=== PATIENT | male | born 1980 | race Caucasian/White ===

== ENCOUNTER 2017-07-02 18:15 | Emergency (ER) | payer OTHER, SELFPAY ==
[2017-07-02 18:16] VITALS: RESP 20; O2SAT 100; BMI 30.7
--- NOTE | 2017-07-02 18:45 | XR_ITS ---
XR chest CHP 2V COMPARISON: CT angiogram of the chest 11/02/2016 HISTORY: Right chest wall pain TECHNIQUE: PA and lateral chest FINDINGS: This is a somewhat poor inspiration however lung virk are clear of infiltrate. The cardiac silhouette and vascularity are normal. Again noted is a partially calcified granuloma right mid lung field which was well seen on the CT scan. There are small calcified hilar nodes bilaterally. The bony thorax appears grossly normal. IMPRESSION: Old granulomatous disease, no acute chest pathology noted
[2017-07-02 19:12] LABS: Basophils # 0.1 K/mm3 (0-0.2); Basophils % 0.5 % (0.1-2.0); Eosinophils # 0.4 K/mm3 (0.0-0.4); Eosinophils % 3.2 % (0.1-12.0); Hematocrit 48.4 % (42.0-52.0); Hemoglobin 16.1 g/dL (14.1-18.0); Lymphocytes % 25.9 K/mm3 (10-50); Mean Corpuscular HGB Conc 33.4 g/dL (31.8-35.4); Mean Corpuscular Volume 86.8 fl (80-94); Monocytes # 0.8 K/mm3 (0.1-1.0); Monocytes % 6.4 % (1.7-9.3); Neutrophils # 7.5 K/mm3 (1.8-7.8); Platelet Count 212 K/mm3 (142-424); Red Blood Count 5.57 M/mm3 (4.60-6.20); Red Cell Distribution Width 13.2 % (11.5-17.5); White Blood Count 11.7 K/mm3 (4.8-10.8)
--- NOTE | 2017-07-02 19:28 | [facility].EDCP ---
ED Disposition Clinical Impression: Musculoskeletal chest pain, Calcified granuloma of lung, Deafness, Atypical chest pain Disposition: Home, Self-Care Condition on Discharge: Good Prescriptions: Methocarbamol [Robaxin 750mg Tab] 750 mg PO TID PRN #21 tab PRN Reason: Moderate To Severe Pain - Critical Care Critical Care Time: No Attestation: On 07/02/17, the high probability of a clinically significant, sudden or life threatening deterioration of the following system(s) required my full and direct attention, intervention and personal management. The time I documented below is in addition to time spent performing reported procedures but includes the following listed in this critical care notation. Medical Decision Making Vital Signs: 07/02/17 18:16 Respiratory Rate 20 02 Sat by Pulse Oximetry 100 Oxygen Delivery Method Room Air - Lab Data Lab Results 07/02/17 18:20: WBC 11.7 H, RBC 5.57, Hgb 16.1, Hct 48.4, MCV 86.8, MCH 29.0, MCHC 33.4, RDW 13.2, Plt Count 212, MPV 9.0, Neut % (Auto) 64.0, Lymph % (Auto) 25.9, [place] % (Auto) 6.4, Eos % (Auto) 3.2, Baso % (Auto) 0.5, Neut # (Auto) 7.5, Lymph # (Auto) 3.0, [place] # (Auto) 0.8, Eos # (Auto) 0.4, Baso # (Auto) 0.1 07/02/17 18:20: Sodium 139, Potassium 3.5, Chloride 102, Carbon Dioxide 28, Anion Gap 12.5, BUN 13, Creatinine 1.03, Estimated Creat Clear 140, Estimated GFR 82, Est GFR ( Amer) 99, Glucose 98, Calcium 8.9, Total Bilirubin 0.4, AST 25, ALT 42, Alkaline Phosphatase 94, Total Creatine Kinase 223, CK-MB (CK-2) 1.5, CK-MB (CK-2) Rel Index 0.7, Troponin I < 0.02, Total Protein 7.8, Albumin 4.1, Globulin 3.7 H, Albumin/Globulin Ratio 1.1 07/02/17 18:20: D-Dimer 163 Result diagrams: 07/02/17 18:20 07/02/17 18:20 Orders (Tests/Meds): ORDERS Category Date Time Status Sputum Culture & Gram Stain Stat Micro 07/02/17 18:51 Ordered - Radiology Data #1 Image(s): Chest Image Reviewed: Yes I reviewed the patient's radiology results, Yes I reviewed the patient's radiology image, Yes I have reviewed radiologist's interpretation Preliminary Findings: Abnormal (Partially calcified granuloma of the right middle lung, no acute finding. ) - ECG Data Tracing #1 Normal sinus rhythm 84/min no acute findings ECG initial impression date: 07/02/17 - Khanh Inquiry Pt receiving controlled substance: No Khanh was queried for this patient: No Medical Decision Making Narrative: The patient is ruled out for [place] he also ruled out for pulmonary embolism by dimer of 160. This x-ray was negative for infiltrates, symptomatic examination was more suggestive of musculoskeletal origin. Will start on muscle relaxants and recommend following up with a primary care physician. Chest Pain HPI - General Chief Complaint: Chest Pain Stated Complaint: CHEST PAIN Mode of Arrival: Ambulatory Source of Information: Patient Limitations: Physical Limitations Description of Symptoms (Recalled from ER Triage Doc. by RN): CHEST PAIN, RIB PAIN AND SOA - History of Present Illness HPI narrative: 36 years old white male with history of deafness presented to the walk-in clinic with right sided chest pain he was sent to the ED for evaluation Upon arrival to the ED with his relative who communicates with him through a sign language he reported waking up with a right sided sharp pain along the right border of the latissimus dorsi muscle that is worse with movement and deep breathing. He denies having fever or chills cough palpitations shortness of breath nausea vomiting. MD complaint: other (Musculoskeletal chest pain) Onset (ago): hour(s) (10-12 hours) Duration: constant Activity at onset: during rest Pain location: right chest Severity: moderate Quality: sharp Relieving factors: rest Exacerbating factors: movement Treatments prior to or on arrival for Cardiac Chest Pain: none - Related Data Previous Rx's Medication Instructions Recorded Methocarbamol
--- NOTE | 2017-07-02 19:31 | ED_ITS ---
ED Disposition Clinical Impression: Musculoskeletal chest pain, Calcified granuloma of lung, Deafness, Atypical chest pain Disposition: Home, Self-Care Condition on Discharge: Good Prescriptions: Methocarbamol [Robaxin 750mg Tab] 750 mg PO TID PRN #21 tab PRN Reason: Moderate To Severe Pain - Critical Care Critical Care Time: No Attestation: On 07/02/17, the high probability of a clinically significant, sudden or life threatening deterioration of the following system(s) required my full and direct attention, intervention and personal management. The time I documented below is in addition to time spent performing reported procedures but includes the following listed in this critical care notation. Medical Decision Making Vital Signs: 07/02/17 18:16 Respiratory Rate 20 02 Sat by Pulse Oximetry 100 Oxygen Delivery Method Room Air - Lab Data Lab Results 07/02/17 18:20: WBC 11.7 H, RBC 5.57, Hgb 16.1, Hct 48.4, MCV 86.8, MCH 29.0, MCHC 33.4, RDW 13.2, Plt Count 212, MPV 9.0, Neut % (Auto) 64.0, Lymph % (Auto) 25.9, [place] % (Auto) 6.4, Eos % (Auto) 3.2, Baso % (Auto) 0.5, Neut # (Auto) 7.5 , Lymph # (Auto) 3.0, [place] # (Auto) 0.8, Eos # (Auto) 0.4, Baso # (Auto) 0.1 07/02/17 18:20: Sodium 139, Potassium 3.5, Chloride 102, Carbon Dioxide 28, Anion Gap 12.5, BUN 13, Creatinine 1.03, Estimated Creat Clear 140, Estimated GFR 82, Est GFR ( Amer) 99, Glucose 98, Calcium 8.9, Total Bilirubin 0.4 , AST 25, ALT 42, Alkaline Phosphatase 94, Total Creatine Kinase 223, CK-MB (CK- 2) 1.5, CK-MB (CK-2) Rel Index 0.7, Troponin I < 0.02, Total Protein 7.8, Albumin 4.1, Globulin 3.7 H, Albumin/Globulin Ratio 1.1 07/02/17 18:20: D-Dimer 163 Result diagrams: 07/02/17 18:20 07/02/17 18:20 Orders (Tests/Meds): ORDERS Category Date Time Status Sputum Culture & Gram Stain Stat Micro 07/02/17 18:51 Ordered - Radiology Data #1 Image(s): Chest Image Reviewed: Yes I reviewed the patient's radiology results, Yes I reviewed the patient's radiology image, Yes I have reviewed radiologist's interpretation Preliminary Findings: Abnormal (Partially calcified granuloma of the right middle lung, no acute finding. ) - ECG Data Tracing #1 Normal sinus rhythm 84/min no acute findings ECG initial impression date: 07/02/17 - Khanh Inquiry Pt receiving controlled substance: No Khanh was queried for this patient: No Medical Decision Making Narrative: The patient is ruled out for [place] he also ruled out for pulmonary embolism by dimer of 160. This x-ray was negative for infiltrates, symptomatic examination was more suggestive of musculoskeletal origin. Will start on muscle relaxants and recommend following up with a primary care physician. Chest Pain HPI - General Chief Complaint: Chest Pain Stated Complaint: CHEST PAIN Mode of Arrival: Ambulatory Source of Information: Patient Limitations: Physical Limitations Description of Symptoms (Recalled from ER Triage Doc. by RN): CHEST PAIN, RIB PAIN AND SOA - History of Present Illness HPI narrative: 36 years old white male with history of deafness presented to the walk-in clinic with right sided chest pain he was sent to the ED for evaluation Upon arrival to the ED with his relative who communicates with him through a sign language he reported waking up with a right sided sharp pain along the right border of the latissimus dorsi muscle that is worse with movement and deep breathing. He denies
[2017-07-02 19:35] LABS: Alanine Aminotransferase 42 U/L (12-78); Albumin Level 4.1 gm/dL (3.4-5.0); Albumin/Globulin Ratio 1.1 (1.1-1.8); Alkaline Phosphatase 94 U/L (46-116); Anion Gap 12.5 mEq/L (5-15); Aspartate Amino Transferase 25 U/L (15-37); Bilirubin,Total 0.4 mg/dL (0.2-1.0); Blood Urea Nitrogen 13 mg/dL (7-18); CKMB Relative Index 0.7 U/L (0-4.0); Calcium 8.9 mg/dL (8.5-10.1); Carbon Dioxide 28 mmol/L (21.0-32.0); Chloride 102 mmol/L (98-107); Creatine Kinase 223 U/L (39-308); Creatine Kinase MB 1.5 mg/ml (0.0-3.6); Creatinine Clearance Estimated 140 mL/min (0-300); Creatinine,Serum 1.03 mg/dL (0.70-1.30); Estimated Glomerular Filt Rate 82 ml/min (>60); GFR (African American) 99 ML/MIN (>60); Globulin 3.7 gm/dl (1.3-3.2); Glucose 98 mg/dL (74-106); Potassium 3.5 mmoL/L (3.5-5.1); Sodium 139 mmol/L (136-145); Total Protein,Serum 7.8 gm/dL (6.4-8.2); Troponin I < 0.02 ng/ml (0.00-0.06)
[2017-07-02 19:37] LABS: D-Dimer 163 (0-400)
[2017-07-02 19:47] VITALS: BP 167/100; PULSE 72; RESP 16; O2SAT 99
== END 2017-07-02 19:48 | disposition home or self-care (01) ==
PROVIDERS: Emergency Provider Emergency Medicine; Family Provider Family Medicine
DX: J84.10 Pulmonary fibrosis, unspecified (principal); R07.89 Other chest pain; H91.90 Unspecified hearing loss, unspecified ear; F17.210 Nicotine dependence, cigarettes, uncomplicated
CPT/HCPCS: 71046; 80053; 82550; 82553; 84484; 85025; 85378; 93005; 99283